=== PATIENT | male | born 1980 | race Caucasian/White ===

== ENCOUNTER 2024-08-22 08:39 | Inpatient (IN) | payer OTHER ==
[2024-08-22 09:12] VITALS: BMI 46.3
[2024-08-22] MEDS ORDERED: diazePAM 5 MG TABLET PO PRN (09:17)
[2024-08-22] MEDS ORDERED: NALOXONE (NARCAN) HCL 4 MG/0.1 ML SPRAY NS PRN (09:18)
[2024-08-22] MEDS ORDERED: BISMUTH SUBSALICYLATE 524 MG/30 ML PO PRN (09:18)
[2024-08-22] MEDS ORDERED: BENZONATATE 200 MG CAPSULE PO PRN (09:18)
[2024-08-22] MEDS ORDERED: MAG HYDROX/AL HYDROX/SIMETH 30 ML UNIT-DOSE CUP PO PRN (09:18)
[2024-08-22] MEDS ORDERED: IBUPROFEN 400 MG TABLET (FP) PO PRN (09:18)
[2024-08-22] MEDS ORDERED: BENZOCAINE/MENTHOL (CHLORASEPTIC ) LOZENGE MM PRN (09:18)
[2024-08-22] MEDS ORDERED: guaiFENesin 600 MG TABLET.ER (FP) PO PRN (09:18)
[2024-08-22] MEDS ORDERED: LOPERAMIDE HCL 2 MG CAPSULE PO PRN (09:18)
[2024-08-22] MEDS ORDERED: IBUPROFEN 600 MG TABLET (FP) PO PRN (09:18)
[2024-08-22] MEDS ORDERED: ACETAMINOPHEN 325 MG TABLET (FP) PO PRN (09:18)
[2024-08-22] MEDS ORDERED: POLYETHYLENE GLYCOL (HEALTHYLAX) 3350 17 GM PACKET PO PRN (09:18)
[2024-08-22] MEDS ORDERED: MAGNESIUM HYDROX 2400MG/30ML ORAL SUSPENSION 30 ML CUP PO PRN (09:18)
[2024-08-22] MEDS ORDERED: ONDANSETRON *ODT* 4 MG TABLET SL PRN (09:18)
[2024-08-22] MEDS ORDERED: DICYCLOMINE HCL 10 MG CAPSULE PO PRN (09:18)
[2024-08-22] MEDS ORDERED: PRENATAL VITAMINS W/ FOLIC ACID TABLET (FP) PO ONE (10:11)
[2024-08-22] MEDS ORDERED: diazePAM 5 MG TABLET ONE (10:11)
[2024-08-22] MEDS ORDERED: levETIRAcetam 500 MG TABLET (FP) PO ONE (10:11)
[2024-08-22] MEDS: PRENATAL VITAMINS W/ FOLIC ACID TABLET (FP) PO SCH (10:14)
[2024-08-22] MEDS: diazePAM 5 MG TABLET PO SCH (10:14)
[2024-08-22] MEDS: levETIRAcetam 500 MG TABLET (FP) PO SCH (10:14)
[2024-08-22] MEDS: HYDROCHLOROTHIAZIDE 25 MG TABLET (FP) PO SCH (11:51)
[2024-08-22] MEDS: LISINOPRIL 20 MG TABLET PO SCH (11:51)
[2024-08-22] MEDS: METHOCARBAMOL 500 MG TABLET PO PRN (12:10)
[2024-08-22] MEDS: THIAMINE 100 MG TABLET PO SCH (22:21)
[2024-08-22] MEDS: MELATONIN 5 MG TABLETS PO SCH (22:22)
[2024-08-23] MEDS ORDERED: methaDONE HCL 40 MG DISPERSABLE TABLET PO SCH (06:00)
[2024-08-23 11:53] LABS: HEMATOCRIT 44.3 % (35.4-49); HEMOGLOBIN 13.4 GM/dL (11.7-16.9); MCH 20.3 pg (25.7-33.7); MCHC 30.3 g/dl (32.0-35.9); MEAN CELL VOLUME 67.1 fl (80-96); MEAN PLT VOLUME 8.6 fl (7.5-11.1); PLATELET COUNT 229 10^3/uL (134-434); RDW 17.6 % (11.9-15.9); WHITE BLOOD COUNT 8.2 K/mm3 (4.0-10.0)
[2024-08-23 12:10] LABS: POTASSIUM 3.8 mmol/L (3.5-5.1)
[2024-08-23 12:19] LABS: BLOOD UREA NITROGEN 13.7 mg/dL (7-18); CALCIUM 9.1 mg/dL (8.5-10.1)
[2024-08-23 12:20] LABS: ALBUMIN 3.6 g/dl (3.4-5.0)
[2024-08-23 12:23] LABS: CREATININE 1.1 mg/dL (0.55-1.3)
[2024-08-23 12:24] LABS: BILIRUBIN,TOTAL 0.7 mg/dL (0.2-1); TOT PROT 8.3 g/dl (6.4-8.2)
[2024-08-24] MEDS: diazePAM 5 MG TABLET PO SCH (05:51)
[2024-08-24] MEDS: TESTOSTERONE CYPIONATE 200 MG/ML VIAL IM SCH (15:47)
[2024-08-24 17:19] VITALS: RESP 18
[2024-08-25] MEDS: diazePAM 5 MG TABLET PO SCH (05:51)
[2024-08-25 09:03] VITALS: BP 139/73; PULSE 76; TEMP 98
[2024-08-25] MEDS: TESTOSTERONE CYPIONATE 200 MG/ML VIAL IM SCH ×2 (09:39→09:40)
[2024-08-26] MEDS ORDERED: diazePAM 5 MG TABLET PO ONE (06:00)
== END 2024-08-25 09:23 | disposition home or self-care (01) | DRG 773 ==
LOC: YASAS 08:39 → Y6N 09:50
PROVIDERS: ADMIT Allergy & Immunology; ATTEND Allergy & Immunology
PROC: HZ2ZZZZ Detoxification Services for Substance Abuse Treatment (ICD-10-PCS; principal; 2024-08-22)
DX: F13.230 Sedative, hypnotic or anxiolytic dependence with withdrawal, uncomplicated (principal); F11.20 Opioid dependence, uncomplicated; F19.282 Other psychoactive substance dependence with psychoactive substance-induced sleep disorder; I10 Essential (primary) hypertension; M12.812 Other specific arthropathies, not elsewhere classified, left shoulder; Z56.0 Unemployment, unspecified
CPT/HCPCS: 36415; 80053; 80305; 80307; 85027; 86780; 93005; 93010